=== PATIENT | female | born 1985 | race African-American/Black ===

== ENCOUNTER 2017-01-27 16:46 | Observation (INO) | payer MEDICAID, OTHER ==
[~2017-01-27 16:46] MED LIST: FLUT1DIS
== END 2017-01-27 22:20 | disposition home or self-care (01) ==
LOC: L&D 16:46
PROVIDERS: ADMIT Obstetrics & Gynecology; ATTEND Obstetrics & Gynecology
DX: O26.892 Other specified pregnancy related conditions, second trimester (principal); R10.9 Unspecified abdominal pain; Z3A.25 25 weeks gestation of pregnancy
CPT/HCPCS: 76805; 76815; 76818; 99281; G0378